=== PATIENT | male | born 1965 | race Caucasian/White ===

== ENCOUNTER 2024-05-31 06:46 | Day surgery (SDC) | payer BC, SELFPAY ==
[2024-05-24 08:48] LABS: Hematocrit 43.6 % (39.0-52.0); Hemoglobin 15.2 g/dL (13.0-18.0); Mean Corp Hgb Conc. 34.9 g/dL (33.0-37.0); Mean Corpuscular Hgb 33.9 pg (27.0-31.0); Mean Corpuscular Volume 97.1 fL (80.0-94.0); Mean Platelet Volume 10.1 fL (7.4-10.4); Platelet Count 300 10^3/uL (130-400); Red Blood Cell Count 4.49 10^6/uL (4.70-6.10); Red Cell Dist. Width 12.4 % (11.5-14.5); White Blood Cell Count 5.8 10^3/uL (4.8-10.8)
[2024-05-24 09:22] LABS: ALT (SGPT) 33 U/L (0-50); AST (SGOT) 32 U/L (17-59); Albumin 4.6 g/dl (3.5-5.0); Alkaline Phosphatase 47 U/L (38-126); Blood Urea Nitrogen 19 mg/dl (9-20); Calcium 9.6 mg/dl (8.4-10.2); Carbon Dioxide 29 mmol/L (22-30); Chloride 102 mmol/L (98-107); Glucose 83 mg/dl (70-99); Potassium 4.6 mmol/L (3.5-5.1); Sodium 141 mmol/L (135-145); Total Bilirubin 0.8 mg/dl (0.2-1.3); eGFR > 60.00
[2024-05-24 11:15] LABS: Glycohemoglobin (HgbA1c) 5.1 % (4.0-5.6)
[2024-05-24 13:30] VITALS: BMI 26.1
[2024-05-25 16:24] VITALS: BMI 26.1
[2024-05-31] VITALS (11 sets, daily range): BP systolic 109–143; BP diastolic 62–85; BMI 26.1; BMI 26.6
--- NOTE | 2024-05-31 09:58 | VNURNOTE ---
Chart reviewed. Per Ortho pre-op list, patient is scheduled for SDS/PSR. Will stay overnight. Per MT, pt is scheduled for outpt PT on 06/04. No [facility] referral placed.
--- NOTE | 2024-05-31 12:47 | W.PN.UPDATE ---
Update Note
Progress Note Update
L TKA Dr. Brooks 05/31/24
DVT ppx-ASA
--- NOTE | 2024-05-31 12:57 | W.DS.TRANS ---
DC Summary - [employer] S[employer]
-
Discharge Instructions:
Sleep Apnea Risk Intermediate
Discharge Diagnosis/Procedures L TKA Dr. Brooks 05/31/24
Diet As tolerated
Activity With Walker
Driving Restrictions No driving
Bathing Restrictions OK to Shower
Other Services PT
Instructions:
Stand-Alone Forms: Total Hip/Knee Replacement D/C
Changes to Home Medications: Yes
Discharge Medications:
DC Medications w/original date entered in [facility]
mupirocin 2 % topical ointment 1 applic topical BID 05/25/24
acetaminophen 325 mg tablet (Tylenol) 650 mg (2 x 325 mg) PO QID #1 tab 05/31/24
aspirin 325 mg tablet 325 mg PO DAILY blood clot prevention #1 tab 05/31/24
celecoxib 100 mg capsule 100 mg PO BID Anti-inflammatory #14 caps 05/31/24
dexamethasone 4 mg tablet 4 mg PO BID inflammation #6 tabs 05/31/24
docusate sodium 100 mg capsule (Colace) 100 mg PO BID stool softner #1 cap 05/31/24
magnesium hydroxide 400 mg/5 mL oral suspension (Milk of Magnesia) 30 ml PO HS PRN Constipation #1 mL 05/31/24
ondansetron 4 mg disintegrating tablet 4 mg PO Q6H PRN n/v #20 tabs 05/31/24
oxycodone 5 mg tablet 5 mg PO Q6H PRN 1 tab moderate pain, 2 tabs severe pain #30 tabs 05/31/24
sennosides 8.6 mg tablet (Senokot) 17.2 mg (2 x 8.6 mg) PO BID laxative #2 tabs 05/31/24
Home Medication Changes
mupirocin 2 % topical ointment 1 applic topical BID 05/25/24
acetaminophen 325 mg tablet (Tylenol) 650 mg (2 x 325 mg) PO QID #1 tab 05/31/24
aspirin 325 mg tablet 325 mg PO DAILY blood clot prevention #1 tab 05/31/24
celecoxib 100 mg capsule 100 mg PO BID Anti-inflammatory #14 caps 05/31/24
dexamethasone 4 mg tablet 4 mg PO BID inflammation #6 tabs 05/31/24
docusate sodium 100 mg capsule (Colace) 100 mg PO BID stool softner #1 cap 05/31/24
magnesium hydroxide 400 mg/5 mL oral suspension (Milk of Magnesia) 30 ml PO HS PRN Constipation #1 mL 05/31/24
ondansetron 4 mg disintegrating tablet 4 mg PO Q6H PRN n/v #20 tabs 05/31/24
oxycodone 5 mg tablet 5 mg PO Q6H PRN 1 tab moderate pain, 2 tabs severe pain #30 tabs 05/31/24
sennosides 8.6 mg tablet (Senokot) 17.2 mg (2 x 8.6 mg) PO BID laxative #2 tabs 05/31/24
Pending Results: No
[2024-05-31] MEDS: CELEBREX 200 MG PO (14:45)
[2024-05-31] MEDS: TYLENOL 650 MG PO ×3 (14:46→23:05)
[2024-05-31] MEDS: NORMOSOL-R/PLASMALYTE-A 1000 IV ×2 (14:47→20:58)
--- NOTE | 2024-05-31 18:41 | OR.RPT ---
Operative Report
Operative Report
Orthopaedic Surgery Operative Note
DATE OF OPERATION: 05/31/2024
PREOPERATIVE DIAGNOSES: Osteoarthritis, left knee.
POSTOPERATIVE DIAGNOSES: Osteoarthritis, left knee.
OPERATION PERFORMED:
1) Left total knee arthroplasty (CPT 92298)
2) Intraosseous administration of analgesic (CPT 59508)
SURGEON: Antelmo Brooks MD
ASSISTANTS: Dashawn Brooke PA-C who helped with patient and limb positioning and retraction
ANESTHESIA: Spinal by anesthesia plus intraoperative infusion of morphine into the tibial metaphysis by Dr. Brooks
COMPLICATIONS: None.
ESTIMATED BLOOD LOSS: 20mL
DRAINS: None
TOURNIQUET TIME: 51 minutes.
IMPLANTS:
- Abbie Persona CR Femur, size 10
- Abbie Persona tibia base plate, size F
- Abbie Persona ultracongruent articular surface, 10 mm
- DJO [place] bone cement
INDICATIONS: The patient presented to my office with debilitating left knee pain due to osteoarthritis. We reviewed the natural history of this problem, as well as the risks, benefits, and alternatives of various treatment options. The patient
exhausted all nonoperative treatment options and wished to proceed with knee replacement surgery. The patient understood the risks which included, but were not limited to, bleeding, infection, failure to relieve pain, more pain than preop, damage to
blood vessels and nerves, need for reoperation, mechanical failure of the implants, wound healing problems, stiffness, instability, blood clot, pulmonary embolism, myocardial infarction, pneumonia, arrhythmia, CVA, and . The patient accepted
these risks and wished to proceed. All questions were answered, and informed consent was obtained.
PROCEDURE IN DETAIL: The patient was identified in the preoperative holding area. The left knee was identified as the operative site. The patient was taken in the operating room and placed in a supine position on the operating table. Spinal
anesthesia was performed. IV antibiotics and tranexamic acid were administered. An SCD was placed on the right lower extremity. A well-padded tourniquet was placed on the proximal thigh. All bony prominences were well padded. The left lower
extremity was prepped and draped in the usual sterile fashion.
We performed a surgical time-out. An interarticular block was performed with local anesthetic with epinephrine. The limb was exsanguinated with an Esmarch bandage, then the tourniquet was inflated to 250 mmHg. I performed interosseous administration
of morphine-saline solution via a Jamshidi style intraosseous needle into the proximal medial tibial metaphysis as described by Berny Palm MD. This was performed to aid in pain control. A midline skin incision was made followed by a medial
parapatellar arthrotomy. A subperiosteal peel was performed on the medial tibia. I excised part of the infrapatellar fat pad to improve our visualization as well as tissue over anterior femur. The patella was everted and the knee was flexed. I
excised the remnants of the anterior and posterior cruciate ligaments as well as tibial and femoral osteophytes with rongeurs.
The knee was flexed, and the extramedullary tibial cutting guide was aligned. [place] was aligned at neutral, rotation was centered on the tibial tubercle, and coronal alignment was aligned with the mechanical axis of the tibia and center of the ankle
joint. The cut height was 2mm off the lateral tibia joint surface due to valgus pattern osteoarthritis. The guide was secured into place. The MCL and LCL were protected. The tibia surface was cut. The cut surface was inspected after removal to
ensure appropriate height and slope based on the preoperative plan. The cut was checked with a drop wade. It was centered nicely at the ankle.
A drill was used to open the femoral canal. The intramedullary distal femoral cutting guide was inserted into the femur. This was set at 5 degrees +0. This was secured into place with three pins. The cut level was checked with an caryn wing. The
distal femur was cut through the cutting guide. The IM guide was reinserted to double check that the level of resection was flush and in appropriate alignment.
Rhianna's line and the transepicondylar axis were marked on the femur. The femoral sizing guide was applied to the anterior femur. Pins were inserted, and the 4-in-1 cutting guide was applied and secured into place. The rotation was compared to
[place]'s line, the transepicondylar axis, and the neutral tibia cut and was found to be appropriate. The width was checked and found to be appropriate and lateralized on the femur. The anterior, posterior, and chamfur cuts were made. A lamina
mattress filler was used to open the flexion gap, and posterior osteophytes were removed with a curved osteotome. The remnant medial and lateral meniscus were also removed. I prophylactically cauterized the lateral geniculate arteries. A 10mm spacer block
was applied to the flexion and extension gaps. It was symmetric in flexion but tight laterally in extension. The ITB was piecrusted with a 15 blade scalpel. The block was reapplied, and the gaps were symmetric medially and laterally in flexion and
extension.
The tibia was exposed and sized. Rotation was set in line with the tibial tubercle and congruent with the femur. The trial was secured into place with two pins. The trial femur was impacted into place, and a trial articular surface was placed. The
knee was taken through range of motion and noted to be stable throughout the arc of motion without gaping or excess tension. The patella tracked centrally throughout the arc of motion without need for further releases.
The trials were removed. The tibia keel was prepared with the punch and the drill. The bone surfaces were irrigated with sterile saline and dried. The cement was mixed in a vacuum mixer. Cement gun was used to apply cement to the tibial surface and
the undersurface of the tibial implant. Cement was pressurized into the tibial canal and tibia surface. The tibial component was impacted into place. Excess cement was removed. Cement was applied to the femoral surface and the femoral component. The
femoral component was impacted into place, and excess cement removed. A trial articular surface was inserted, and the knee was extended while the cement polymerized. The tourniquet was let down, and meticulous hemostasis was achieved. Dilute
betadine was poured into the wound and allowed to soak for 3 minutes. The knee was irrigated with copious normal saline.
Once the cement was polymerized, the trial articular surface was removed. Any excess cement was removed. The knee was trialed, and the final articular surface was selected and inserted into the tibial locking mechanism. The knee was reduced. A fresh
drape was applied to the surgical field.
The arthrotomy was closed with 0-PDS. Once closed, an interarticular block was performed with local anesthetic with epi. The deep dermal layer was closed with 2-0 PDS, and the subcuticular skin was closed with 3-0 monocryl. A Dermabond Prineo
dressing was applied to the skin in full flexion. Once this was completely dry, a sterile waterproof dressing was applied.
The anesthesia team performed an adductor canal block in the OR. The patient awoke from anesthesia without any difficulties. The sponge and instrument counts were correct x2 at the end of the case.
Ad Brooks MD
[2024-05-31] MEDS: TYLENOL PO (19:19)
[2024-05-31] MEDS: ASPIRIN 325 MG PO (19:25)
[2024-05-31] MEDS: ROXICODONE 5 MG PO (19:26)
--- NOTE | 2024-05-31 20:15 | PTCARENOTE ---
Pt arrived to floor from PACU. Pt post op Left total knee arthroplasty, Intraosseous administration of analgesic. Left knee Antibacterial surgical dressing intact. +1 edema to left knee. Ice pack in place. Pt reports pain at 2/10 at this time. Pt
reports some numbness/ tingling of toes due to spinal block. Palpable pulses present. Pt reports feeling hungry and asking for food. water, gello, crackers provided. Left AC int infusing IVF as ordered. Call godoy in reach. at bedside. Will
monitor.
[2024-05-31] MEDS: BACTROBAN 2% OINTMENT 1 APPLIC NASAL (20:53)
[2024-05-31] MEDS: COLACE 100 MG PO (20:57)
[2024-05-31] MEDS: DECADRON 6 MG IV (21:02)
[2024-05-31] MEDS: SENOKOT 17.2 MG PO (21:03)
[2024-05-31] MEDS: PEPCID 20 MG PO (21:03)
[2024-05-31] MEDS: ULTRAM 50 MG PO (21:04)
[2024-05-31] MEDS: NEURONTIN 300 MG PO (21:04)
[2024-05-31] MEDS: TORADOL 15 MG IV (21:04)
[2024-05-31] MEDS: ANCEF 5 IV (23:05)
[2024-05-31] MEDS: ROXICODONE 10 MG PO (23:39)
[2024-06-01 03:00] VITALS: BP 112/69
[2024-06-01] MEDS: TYLENOL 650 MG PO ×2 (05:12→08:10)
--- NOTE | 2024-06-01 05:51 | PTCARENOTE ---
Pt OOB with assist this am. Pt ambulatory to bathroom with walker. Pt tolerated well. Pt reports left knee pain at tolerable level. Will continue to monitor.
[2024-06-01 07:06] VITALS: BP 118/69
[2024-06-01] MEDS: CELEBREX 200 MG PO (08:09)
[2024-06-01] MEDS: ANCEF 5 IV (08:09)
[2024-06-01] MEDS: BACTROBAN 2% OINTMENT 1 APPLIC NASAL (08:10)
[2024-06-01] MEDS: SENOKOT 17.2 MG PO (08:10)
[2024-06-01] MEDS: ULTRAM 50 MG PO (08:10)
[2024-06-01] MEDS: ASPIRIN 325 MG PO (08:10)
[2024-06-01] MEDS: COLACE 100 MG PO (08:10)
[2024-06-01] MEDS: DECADRON 6 MG IV (08:11)
[2024-06-01] MEDS: TORADOL 15 MG IV (08:14)
[2024-06-01 09:29] VITALS: BP 116/72; BP 116/75; PULSE 62
--- NOTE | 2024-06-01 10:55 | CM ---
Met with pt at bedside
Pt reports he lives with his in a ranch style home; 2 steps to enter
Independent, employed FT, driving
DME - single point cane, rolling walker
SNF/HH - no past hx
Has ride home
PCP - Carlyn Mcgarry [facility]
Pharm - [facility] Has Rx and transport
Plan - anticipate home with outpatient PT when medically stable
--- NOTE | 2024-06-01 11:01 | W.PN.ORTHO ---
Today's Communication / Plan
-
d/c
Assessment
.
Distal Motor Intact: Yes
Dressing:
Clean, dry and intact.
Plan
.
Surgery / Date: Libra Brooks 05/31/24
DVT Prophylaxis: Aspirin
Activity:
Out of bed.
PT/OT
Discharge Plan: Home w/ Outpatient PT
Subjective
.
.:
Patient resting comfortably.
Vital Signs and Labs
.
Vital Signs and Labs:
Lab Results
05/24/24 07:55
05/24/24 07:55
Temp Pulse Resp BP Pulse Ox
97.8 F 70 17 118/69 98
06/01/24 07:06 06/01/24 07:06 06/01/24 07:06 06/01/24 07:06 06/01/24 07:06
Non-invasive Hgb result: 14.7
Physical Exam
-
HEENT: No pallor, cyanosis, or jaundice. Throat clear.
NECK: Supple. No JVD.
RESPIRATORY: Lungs clear to auscultation.
CVS: S1, S2 normal. RRR.� No murmur, rub or gallop.
ABDOMEN: Soft, non-tender. No distension. BS+/normal.
EXTREMITIES: strength equal, no calf pain with palpation
TUMBLERS SUPERVISOR: AOx3. No focal deficits. cellophane wrapping examiner grossly intact
[2024-06-01 11:23] VITALS: BP 115/71
[2024-06-01 12:05] VITALS: BP 124/72; PULSE 66; O2SAT 97
== END 2024-06-01 12:37 | disposition home or self-care (01) ==
LOC: SDS 06:46
PROVIDERS: ATTENDING PHYSICIAN Orthopaedic Surgery; FAMILY PHYSICIAN Nurse Practitioner Family
DX: M17.12 Unilateral primary osteoarthritis, left knee (principal)
CPT/HCPCS: 27447; 36680; 36415; 73560; 80053; 83036; 85027; 87070; 97110; 97162; 97166; 97530; C1713; C1776

== ENCOUNTER 2024-06-12 08:59 | Outpatient (RCR) | payer BC, SELFPAY | END 2024-06-12 23:59 | disposition home or self-care (01) | LOC: RPT 08:59 | PROVIDERS: ATTENDING PHYSICIAN Physician Assistant Surgical; FAMILY PHYSICIAN Internal Medicine | DX: Z47.1 Aftercare following joint replacement surgery (principal); Z96.652 Presence of left artificial knee joint; Z73.6 Limitation of activities due to disability | CPT/HCPCS: 97010; 97110; 97161; 97530 ==

== ENCOUNTER 2024-07-12 15:03 | Outpatient (RCR) | payer BC, SELFPAY | END 2024-07-12 23:59 | disposition home or self-care (01) | LOC: RPT 15:03 | PROVIDERS: ATTENDING PHYSICIAN Physician Assistant Surgical; FAMILY PHYSICIAN Internal Medicine | DX: Z47.1 Aftercare following joint replacement surgery (principal); Z73.6 Limitation of activities due to disability; R26.89 Other abnormalities of gait and mobility; M25.562 Pain in left knee; M62.81 Muscle weakness (generalized); Z96.652 Presence of left artificial knee joint | CPT/HCPCS: 97010; 97110; 97112; 97116; 97140; 97530 ==

== ENCOUNTER 2024-07-19 15:09 | Outpatient (RCR) | payer BC, SELFPAY | END 2024-08-07 10:03 | disposition home or self-care (01) | LOC: RPT 15:09 | PROVIDERS: ATTENDING PHYSICIAN Physician Assistant Surgical; FAMILY PHYSICIAN Internal Medicine | DX: Z47.1 Aftercare following joint replacement surgery (principal); Z73.6 Limitation of activities due to disability; R26.89 Other abnormalities of gait and mobility; M25.562 Pain in left knee; M62.81 Muscle weakness (generalized); Z96.652 Presence of left artificial knee joint | CPT/HCPCS: 97110; 97112; 97530 ==